=== PATIENT | male | born 1975 | race Caucasian/White ===

== ENCOUNTER → 2017-01-19 | Outpatient (CLI) | payer OTHER | LOC: KOH-I 12:34 | DX: M79.641 Pain in right hand (principal) | CPT/HCPCS: 73110 ==

== ENCOUNTER 2021-01-14 20:34 | Emergency (ER) | payer OTHER ==
[~2021-01-14 20:34] MED LIST: BACTRIM 400-801 EACH PO; BACTRIM DS TAB1 EACH PO; CENTANY30 GM TP; GABAPENTIN600 MG PO; KEFLEX CAP 500500 MG PO; NAPROSYN500 MG PO; PRILOSEC OTC20 MG PO; PROAIR HFA8.5 GM INH
[2021-01-14 21:39] LABS: HEMOGLOBIN 14.4 gm/dl (14.0-17.5); RED BLOOD COUNT 4.73 M/UL (4.20-5.50); WHITE BLOOD COUNT 7.9 K/UL (4.5-11.0)
[2021-01-14 22:26] LABS: BUN/CREATININE RATIO 23 (0-10)
[2021-01-15] MEDS ORDERED: ASPIRIN CHEWABL81 MG PO (01:07)
== END 2021-01-15 01:40 | disposition home or self-care (01) ==
LOC: ER1 20:34
PROVIDERS: Emergency Medicine
DX: R07.2 Precordial pain (principal); F17.210 Nicotine dependence, cigarettes, uncomplicated
CPT/HCPCS: 36415; 71045; 80053; 82550; 82553; 83690; 83874; 84484; 85025; 85379; 85610; 85730; 93005; 99285

== ENCOUNTER 2021-03-05 17:37 | Emergency (ER) | payer OTHER ==
[~2021-03-05 17:37] MED LIST changes: +ASPIRIN CHEWABL81 MG PO
[2021-03-05 18:46] LABS: HEMOGLOBIN 13.2 gm/dl (14.0-17.5); RED BLOOD COUNT 4.34 M/UL (4.20-5.50); WHITE BLOOD COUNT 7.7 K/UL (4.5-11.0)
[2021-03-05 19:02] LABS: BUN/CREATININE RATIO 26 (0-10)
== END 2021-03-06 02:30 | disposition home or self-care (01) ==
LOC: ER1 17:37
PROVIDERS: Family Medicine; Preventive Medicine Occupational Medicine
DX: R45.851 Suicidal ideations (principal); F15.10 Other stimulant abuse, uncomplicated; I10 Essential (primary) hypertension
CPT/HCPCS: 36600; 70450; 71045; 80053; 80307; 81001; 82140; 82550; 82553; 82803; 83690; 83874; 84132; 84484; 85025; 85652; 86140; 87086; 96374; 99285; G0480; J2060